=== PATIENT | male | born 1960 | race Caucasian/White ===

== ENCOUNTER → 2017-01-02 | Outpatient (CLI) | payer OTHER ==
[~2017-01-02] MED LIST: CIPRO 500MG TA500 MG PO; FLOMAX 0.40.4 MG/CAP PO; NAPROSYN 2250 MG/TAB PO; PERCOCET 5/321 UDTAB PO; PHENERGAN 25 TA25 MG PO; PHENERGAN25 MG RC
== END ==
LOC: COL.RAD 10:00
DX: R91.1 Solitary pulmonary nodule (principal); K44.9 Diaphragmatic hernia without obstruction or gangrene; J98.11 Atelectasis
CPT/HCPCS: Q9967

== ENCOUNTER 2017-03-13 08:00 | Outpatient (RCR) | payer OTHER | END 2017-04-24 13:41 | disposition home or self-care (01) | LOC: WSOT 08:00 | DX: M77.8 Other enthesopathies, not elsewhere classified (principal) ==

== ENCOUNTER → 2017-04-18 | Outpatient (CLI) | payer OTHER | LOC: COL.RAD 08:47 | DX: S63.512A Sprain of carpal joint of left wrist, initial encounter (principal) | CPT/HCPCS: J3301; Q9967 ==

== ENCOUNTER → 2019-11-22 | Outpatient (CLI) | payer OTHER | LOC: COL.RAD 08:00 | DX: M25.532 Pain in left wrist (principal) | CPT/HCPCS: J3301; Q9967 ==

== ENCOUNTER 2021-08-23 05:22 | Emergency (ER) | payer OTHER ==
[~2021-08-23] VITALS: Ht 172.7 cm; Wt 104.5 kg
[2021-08-23 05:35] VITALS: BP 161/98; PULSE 69; TEMP 98.3
[2021-08-23 06:08] LABS: BASO # 0.1 K/mm3 (0.0-0.2); BASO % 0.4 % (0.0-2.0); GRAN # 8.8 K/mm3 (1.4-6.5); GRAN % 77.4 % (42.2-75.2); HEMATOCRIT 44.2 % (42.0-52.0); HEMOGLOBIN 15.2 g/dl (13.5-18.0); LYMPH # 1.5 K/mm3 (1.2-3.4); LYMPH % 13.5 % (20.0-51.0); MEAN CELL VOLUME 85 fl (80.0-100.0); MEAN CORPUSCULAR HEMOGLOBIN 29 pg (27.0-31.0); MEAN CORPUSCULAR HGB CONC 34 g/dl (33.0-37.0); MONO # 0.9 K/mm3 (0.1-0.6); MONO % 8.2 % (1.7-9.3); PLATELET COUNT 242 K/mm3 (130-400); RED BLOOD COUNT 5.23 M/mm3 (4.20-5.60)
[2021-08-23 06:15] LABS: C-REACTIVE PROTEIN 0.37 mg/dL (0.00-0.50); CALCIUM 9.3 mg/dL (8.4-10.2); CREATININE, serum 1.05 mg/dL (0.72-1.25); POTASSIUM 3.8 mmol/L (3.5-4.5)
[2021-08-23] MEDS ORDERED: AMOXICILLIN 8751 TAB PO (06:26)
[2021-08-23] MEDS ORDERED: NORCO 325 MG-51 TAB PO (06:32)
[2021-08-23 06:44] LABS: ERYTHROCYTE SEDIMENTATION RATE 4 mm/hr (0-30)
== END 2021-08-23 06:40 | disposition home or self-care (01) ==
LOC: COL.ER 05:22
PROVIDERS: Emergency Medicine
DX: L03.113 Cellulitis of right upper limb (principal); I10 Essential (primary) hypertension; W55.03XA Scratched by cat, initial encounter; W54.8XXA Other contact with dog, initial encounter

== ENCOUNTER 2022-05-26 12:46 | Emergency (ER) | payer OTHER ==
[~2022-05-26] VITALS: Ht 172.7 cm; Wt 104.5 kg
[~2022-05-26 12:46] MED LIST changes: +AMOXICILLIN 8751 TAB PO; +NORCO 325 MG-51 TAB PO
[2022-05-26 13:16] VITALS: TEMP 98.1
[2022-05-26] MEDS ORDERED: AMOXICILLIN 50500 MG PO (13:40)
[2022-05-26 13:54] VITALS: BP 133/90; PULSE 87
== END 2022-05-26 13:55 | disposition home or self-care (01) ==
LOC: COL.ER 12:46
DX: S01.511A Laceration without foreign body of lip, initial encounter (principal); W18.30XA Fall on same level, unspecified, initial encounter; W22.8XXA Striking against or struck by other objects, initial encounter